=== PATIENT | male | born 1935 | race Caucasian/White ===

== ENCOUNTER 2018-01-07 14:30 | Emergency (ER) | payer OTHER ==
[~2018-01-07] VITALS: Ht 177.8 cm; Wt 104.4 kg
[2018-01-07 14:58] LABS: BASOPHIL (%) 0.8 % (0-1); BASOPHIL COUNT 0.1 K/uL (0-0.1); EOSINOPHIL (%) 3.3 % (0-5); EOSINOPHIL COUNT 0.2 K/uL (0-0.3); HEMATOCRIT 34.9 % (38.0-50.0); HEMOGLOBIN 11.9 G/DL (12.5-16.6); IMMATURE GRANULOCYTE (%) 0.3 % (0.0-0.7); LYMPHOCYTE (%) 16.7 % (15-42); LYMPHOCYTE COUNT 1.1 K/uL (1.0-2.8); MCH 31.5 PG (29.0-34.0); MCHC 34.1 G/DL (30.0-36.0); MCV 92.3 FL (86-99); MONOCYTE COUNT 0.4 K/uL (0-0.8); NEUTROPHIL (%) 72.9 % (45-76); NEUTROPHIL COUNT 4.7 K/uL (1.8-6.4); PLATELET COUNT 132 K/uL (156-360); RBC DIS.WIDTH-SD 44.1 % (39-53); RED BLOOD COUNT 3.78 M/uL (4.00-5.50); WHITE BLOOD COUNT 6.5 K/uL (4.1-10.2)
[2018-01-07 15:06] LABS: CHLORIDE 107 mEq/L (99-109); INTER. NORMALIZED RATIO 1.1; POTASSIUM 4.4 mEq/L (3.7-5.4); SODIUM 141 mEq/L (136-147)
[2018-01-07 15:08] LABS: GLUCOSE 169 mg/dL (70-99)
[2018-01-07 15:12] LABS: CREATININE 1.4 mg/dL (0.6-1.3); GFR ESTIMATE (CALCULATED) 52 mL/min/ (58.99-99999)
[2018-01-07 15:13] LABS: UREA NITROGEN (BUN) 25 mg/dL (9-23)
[2018-01-07] MEDS ORDERED: AMMONIUM LACTA140 GM TP (16:30)
[2018-01-07] MEDS ORDERED: LISINOPRIL-HCT1 EAC3 PO (16:30)
[2018-01-07] MEDS ORDERED: ZOCOR80 MG PO (16:30)
[2018-01-07] MEDS ORDERED: HYTRIN2 MG PO (16:30)
[2018-01-07] MEDS ORDERED: LOPRESSOR50 MG PO (16:30)
[2018-01-07] MEDS ORDERED: ONGLYZA5 MG PO (16:31)
[2018-01-07] MEDS ORDERED: AMMONIUM LACTA224 GM TP (16:31)
[2018-01-07] MEDS ORDERED: GLIPIZIDE10 MG PO (16:31)
[2018-01-07] MEDS ORDERED: GLUCOPHAGE1000 MG PO (16:32)
[2018-01-07] MEDS ORDERED: MAGNESIUM400 M1 PO (16:33)
[2018-01-07] MEDS ORDERED: FOSAMAX70 MG PO (16:33)
[2018-01-07] MEDS ORDERED: VITAMIN D31000 UNIT PO (16:34)
[2018-01-07] MEDS ORDERED: SUPER B COMPL400 MCG PO (16:34)
[2018-01-07] MEDS ORDERED: LITE COAT ASPI325 M1 PO (16:34)
[2018-01-07 19:00] LABS: THYROTROPIN (TSH) 1.5 MIU/L (0.4-5.5)
[2018-01-08 03:52] VITALS: BP 124/69
== END 2018-01-08 03:54 | disposition short-term general hospital (02) ==
LOC: EME 14:30 → EDOF 18:18 → ENRESERV 18:23 → CANRESERV 18:34
PROVIDERS: Emergency Medicine
DX: S72.142A Displaced intertrochanteric fracture of left femur, initial encounter for closed fracture (principal); R22.1 Localized swelling, mass and lump, neck; I87.1 Compression of vein; E04.9 Nontoxic goiter, unspecified; W19.XXXA Unspecified fall, initial encounter; E11.9 Type 2 diabetes mellitus without complications; I10 Essential (primary) hypertension; E78.5 Hyperlipidemia, unspecified; Z95.5 Presence of coronary angioplasty implant and graft; Z87.891 Personal history of nicotine dependence
CPT/HCPCS: 71045; 71275; 73502; 73552; 80048; 84443; 85025; 85610; 93005; 99281; 99285; J3010; J7030; J7040